=== PATIENT | male | born 1945 | race Caucasian/White ===

== ENCOUNTER 2018-11-27 04:51 | Inpatient (IN) ==
--- NOTE | 2018-10-21 09:03 | PAT Medication Instructions ---
Medication Instructions Date of Service October 21, 2018 Home Medications aspirin [Aspir-81] 81 mg PO DAILY calcium carbonate [Tums] 1 dose PO UD PRN ezetimibe-simvastatin [Vytorin 1 tab PO PM hydrochlorothiazide 25 mg PO QAM levothyroxine 50 mcg PO QAM naproxen sodium [Aleve] 220 mg PO BID PRN ASK your surgeon for instructions naproxen sodium [Aleve] 220 mg PO BID PRN DO NOT take the morning of surgery calcium carbonate [Tums] 1 dose PO UD PRN hydrochlorothiazide 25 mg PO QAM Take morning of surgery With a small sip of water, OTHERWISE NOTHING TO EAT OR DRINK AFTER MIDNIGHT: aspirin [Aspir-81] 81 mg PO DAILY levothyroxine 50 mcg PO QAM Take evening before surgery calcium carbonate [Tums] 1 dose PO UD PRN (if needed) ezetimibe-simvastatin [Vytorin 1 tab PO PM Other Notes If you have any questions please call us at [phone] or [phone] or [phone] or [phone]
--- NOTE | 2018-10-21 11:26 | Anesthesiology Consultation ---
Date of Service October 21, 2018 Assessment & Plan (1) Encounter for pre-operative examination: Chart Review Chart Review: Acceptable Risk for Surgery and Patient seen in Pre Admission Testing Teaching & Discussion Pre-Anesthesia Teaching/Discussion Notes: Instructed NPO after midnight before surgery,except medications with 15 cc of water. Medication instructions provided according to the PAT guidelines. History Surgery Operation Date: 11/20/18 08:30 Proposed Procedures p Right Reverse Total Shoulder Arthroplasty - Ryland Holland, Height/Weight Height: 5 ft 8 in Weight: 78.3 kg Allergies Allergy/AdvReac Type Severity Reaction Status Date / Time niacin Allergy Mild Unknown Verified 10/14/18 09:06 tetanus toxoid, adsorbed Allergy Mild SWELLING/REDNESS Verified 10/21/18 11:33 AT INJECTION SITE Medications Home Medications Medication Instructions Recorded Confirmed Last Taken aspirin [Aspir-81] 81 mg PO DAILY 10/14/18 10/14/18 Unknown calcium carbonate [Tums] 1 dose PO UD PRN 10/14/18 10/14/18 Unknown ezetimibe-simvastatin [Vytorin 1 tab PO PM 10/14/18 10/14/18 10/13/18 10-20] hydrochlorothiazide 25 mg PO QAM 10/14/18 10/14/18 10/14/18 levothyroxine 50 mcg PO QAM 10/14/18 10/14/18 10/14/18 naproxen sodium [Aleve] 220 mg PO BID PRN 10/14/18 10/14/18 Unknown Past Medical History Medical History Acid reflux DIET CONTROLLED Arthritis Degenerative disc disease Enlarged prostate History of kidney stones Hyperlipidemia Hypothyroidism PVCs (premature ventricular contractions) Spinal stenosis Past Family History Family History Brother Family history of cancer Past Surgical History Surgical History History of bowel resection 2/2 BENIGN COLON MASS History of colonoscopy History of cystoscopy History of inguinal hernia repair, bilateral History of repair of left rotator cuff Past Anesthesia History No Hx of Anesthesia Complications and No Family Hx of Anesthesia Complications History of PONV No Motion Sickness Screening History of Motion Sickness: Yes (OCCASIONAL) Social History Smoking Status: Never smoker Do You Dip or Chew Tobacco: No Hx Alcohol Use: Yes Alcohol type: beer alcohol intake frequency: a few times a week Hx Substance Use: No substance use type: does not use Exercise / Class Metabolic Activity II 4-5 Yardwork/Stairs/Walk up thomson Review of Systems Acid reflux controlled. Patient denies chest pain, shortness of breath, cough, wheezing, palpitations. Physical Exam Vital Signs VITALS BP 138/82 P 74 TEMP 97.8 SP02 94%RA RESP 18 PHYSICAL Full neck and c-spine range of motion. Full TMJ range of motion. TMD 2.5 finger breaths Mallampati Score 3 Dentition: partial dentures on lower; full on upper Lungs: clear throughout to auscultation Cardiac: regular rate and rhythm, no murmurs noted Spine: normal Carotid arteries: negative bruit Extremities: no edema Testing Electrocardiogram Date: 10/21/18 NSR at 71bpm. LAD. Chest X-Ray Date: 10/21/18 Findings: + NAD Laboratory Results 10/21/18 12:05 10/21/18 12:05 Blood Type AB Positive 10/21/18 12:05 Antibody Screen NEGATIVE 10/21/18 12:05 PT 10.3 Seconds (9.0-12.0) 10/21/18 12:05 INR 1.0 (0.9-1.1) 10/21/18 12:05 APTT 25.9 Seconds (21.0-31.0) 10/21/18 12:05
[2018-10-21 12:38] LABS: Basophils # (auto) 0.06 K/uL (0-0.2); Basophils % (auto) 0.8 %; Eosinophils # (auto) 0.16 K/uL (0-0.5); Eosinophils % (auto) 2.2 %; Hematocrit (blood only) 47.7 % (42-52); Hemoglobin 16.8 g/dL (14.0-18.0); Immature Granulocytes # (auto) 0.02 K/uL (0.00-0.02); Immature Granulocytes % (auto) 0.3 %; Lymphocytes # (auto) 1.59 K/uL (1.2-3.4); Lymphocytes % (auto) 21.5 %; Mean Corpuscular Hgb Conc 35.2 g/dL (32-36); Mean Corpuscular Volume 84.3 fL (80-100); Mean Platelet Volume 11.2 fL (7.4-10.4); Monocytes % (auto) 8.1 %; Neutrophils # (auto) 4.98 K/uL (1.4-6.5); Neutrophils % (auto) 67.1 %; Platelet Count 206 K/uL (130-400); RDW Coefficient of Variation 12.7 % (11.5-14.5); RDW Standard Deviation 38.3 fL (36.4-46.3); Red Blood Count 5.66 M/uL (4.7-6.1); White Blood Count 7.41 K/uL (4.8-10.8)
[2018-10-21 12:51] LABS: Partial Thromboplastin Time 25.9 Seconds (21.0-31.0); Prothrombin Time 10.3 Seconds (9.0-12.0)
--- NOTE | 2018-10-21 13:15 | XRay Report ---
XR chest Pre-admission PA/Lat HISTORY: Preop. COMPARISON: None. FINDINGS: No pneumothorax. No pleural effusions. The heart is normal in size. The lungs are clear. Th ere are low lung volumes. IMPRESSION: No acute process. Electronically signed by: Jaime Garcia M.D. 10/21/2018 1:13 PM
[2018-10-21 13:37] LABS: BUN Creatinine Ratio 14.3 (10-20); Calcium 9.1 mg/dl (8.5-10.1); Est GFR (African American) 73.8; Est GFR (Non-African American) 63.7; Potassium 3.9 mmol/L (3.5-5.1)
--- NOTE | 2018-11-26 20:46 | History & Physical Report ---
Date of Service November 26, 2018 Assessment & Plan (1) Rotator cuff arthropathy of right shoulder: We will proceed with a right reverse shoulder arthroplasty. Postoperatively he will be placed in an arm sling and kept overnight for postop medical management. He plans to use dryer physical therapy upon discharge. Present on Admission?: Yes History of Present Illness Chief Complaint: Rotator cuff arthropathy of the right shoulder Primary Care Provider: Sung Sebastian is a pleasant 72-year-old male who has been dealing with a several year history of increasing right shoulder pain. MRI, x-rays, and physical examination were all diagnostic for rotator cuff arthropathy of the right shoulder. After failing extensive conservative treatment including multiple injections, he has elected to proceed with a reverse right shoulder arthroplasty. Allergies Allergy/AdvReac Type Severity Reaction Status Date / Time niacin Allergy Mild Unknown Verified 10/14/18 09:06 tetanus toxoid, adsorbed Allergy Mild SWELLING/REDNESS Verified 10/21/18 11:33 AT INJECTION SITE Home Medications Home Medications Medication Instructions Recorded Confirmed Type aspirin [Aspir-81] 81 mg PO DAILY 10/14/18 10/14/18 History calcium carbonate [Tums] 1 dose PO UD PRN 10/14/18 10/14/18 History ezetimibe-simvastatin [Vytorin 1 tab PO PM 10/14/18 10/14/18 History 10-20] hydrochlorothiazide 25 mg PO QAM 10/14/18 10/14/18 History levothyroxine 50 mcg PO QAM 10/14/18 10/14/18 History naproxen sodium [Aleve] 220 mg PO BID PRN 10/14/18 10/14/18 History Past Med/Surg History Medical History Acid reflux DIET CONTROLLED Arthritis Degenerative disc disease Enlarged prostate History of kidney stones Hyperlipidemia Hypothyroidism PVCs (premature ventricular contractions) Spinal stenosis Surgical History History of bowel resection 2/2 BENIGN COLON MASS History of colonoscopy History of cystoscopy History of inguinal hernia repair, bilateral History of repair of left rotator cuff Family History Brother Family history of cancer Social History Preferred Language: Andorran Communication Ability: Effective Aix Architect Required: No Beliefs That Will Affect Care: None Current Living Situation: Spouse Other Information That Helps Us Care for You: No Feels Safe at Home: Yes Smoking Status: Never smoker Hx Alcohol Use: Yes Hx Substance Use: No Review of Systems All systems reviewed & are unremarkable except as noted in HPI & below Physical Exam Constitutional: WD/WN, vitals as above Eyes: PERRL, conjunctivae normal, anicteric sclerae ENMT: external ear and nose normal, oropharynx normal Neck: trachea midline, no thyromegaly Respiratory: normal respiratory effort Cardiovascular: RRR, no murmur, no edema Gastrointestinal (Abdomen): normal bowel sounds, soft, nontender, no he patosplenomegaly Musculoskeletal: Physical examination of the right shoulder reveals decreased range of motion and significant weakness. There is tenderness palpation along the anterior glenohumeral joint line. The right upper extremity is neurovascularly intact. Psychiatric: A+Ox3, euthymic affect Results & Data Diagnostic Findings Radiographs of the right shoulder show some signs of osteoarthritis with blunting of the greater tuberosity and some superior migration of the humeral head on the glenoid.
[~2018-11-27 04:51] MED LIST: ACETAMINOPHEN 500 MG TAB PO SCH; CEFAZOLIN 2000MG 2,000 MG/15 ML SYR IV SCH; FAMOTIDINE 20 MG TAB PO SCH; GABAPENTIN 300 MG PO SCH; LR 15ML/HR IV SCH; LR 60ML/HR IV SCH; ROPIVACAINE 0.5% HCL/PF 150 MG, BUPIVACAINE 0.5% MPF 30 ML, EPINEPHrine 30MG/30ML (OR U... INFIL SCH; TRANEXAMIC ACID 1,000 MG **IV Intra-op IV SCH; TRANEXAMIC ACID 1,000 MG **IV Pre-op IV SCH
[2018-11-27] MEDS ORDERED: TRANEXAMIC ACID 1,000 MG **IV Pre-op IV SCH (06:00)
[2018-11-27] MEDS ORDERED: GABAPENTIN 300 MG PO SCH (06:00)
[2018-11-27] MEDS ORDERED: CEFAZOLIN 2000MG 2,000 MG/15 ML SYR IV SCH (06:00)
[2018-11-27] MEDS ORDERED: ACETAMINOPHEN 500 MG TAB PO SCH (06:00)
[2018-11-27] MEDS ORDERED: LR 15ML/HR IV SCH (06:00)
[2018-11-27] MEDS ORDERED: LR 60ML/HR IV SCH (06:00)
[2018-11-27] MEDS ORDERED: FAMOTIDINE 20 MG TAB PO SCH (06:00)
[2018-11-27] MEDS ORDERED: ROPIVACAINE 0.5% HCL/PF 150 MG, BUPIVACAINE 0.5% MPF 30 ML, EPINEPHrine 30MG/30ML (OR U... INFIL SCH (06:00)
[2018-11-27] MEDS ORDERED: ROCURONIUM BROMIDE 10 MG/ML 5 ML VIAL ONE (06:29)
[2018-11-27] MEDS ORDERED: MIDAZOLAM HCL 1 MG/ML 2ML VIAL ONE (06:29)
[2018-11-27] MEDS ORDERED: PROPOFOL IV EMULSION 10 MG/ML 20 ML VIAL IV ONE (06:29)
[2018-11-27] MEDS ORDERED: ROPIVACAINE 0.5% 5 MG/ML 30 ML VIAL ONE (06:29)
[2018-11-27] MEDS ORDERED: LIDOCAINE HCL 2% 2 ML VIAL/AMP(20MG/ML) INFIL ONE (06:29)
[2018-11-27] MEDS ORDERED: fentaNYL citrate 100 MCG/2 ML VIAL ONE (06:30)
[2018-11-27] MEDS ORDERED: TRANEXAMIC ACID 1,000 MG **IV Intra-op IV SCH (06:30)
[2018-11-27] MEDS ORDERED: ePHEDrine sulfate 50 MG/ML AMP IV PRN (06:31)
[2018-11-27] MEDS ORDERED: ONDANSETRON INJ 2 MG/ML 2 ML VIAL IV PRN ×2 (06:31→10:10)
[2018-11-27] MEDS ORDERED: fentaNYL citrate 100 MCG/2 ML VIAL IV PRN (06:31)
[2018-11-27] MEDS ORDERED: POVIDONE-IODINE OP SOLN 30 ML BTL ONE (06:31)
[2018-11-27] MEDS ORDERED: ATROPINE SULFATE 0.1 MG/ML 10ML SYR IV PRN (06:31)
[2018-11-27] MEDS ORDERED: HYDROmorphone INJ 1 MG/ML SYRINGE IV PRN (06:31)
--- NOTE | 2018-11-27 06:43 | History & Physical Bridge Note ---
Date of Service November 27, 2018 History & Physical Bridge Note I have examined the patient, reviewed the History & Physical and in the interval since the performance of the History & Physical I have noted the following changes of clinical significance: no changes noted
[2018-11-27] MEDS ORDERED: BUPIVACAINE 0.5 % 5 MG/1 ML PF 10ML VIAL ONE (07:11)
[2018-11-27] MEDS ORDERED: PHENYLEPHRINE 100MCG/ML 5ML SYR ONE (07:32)
[2018-11-27] MEDS ORDERED: NEOSTIGMINE METHYLSULFATE 5 MG/5 ML SYR ONE (07:32)
[2018-11-27] MEDS ORDERED: ONDANSETRON INJ 2 MG/ML 2 ML VIAL ONE (07:32)
[2018-11-27] MEDS ORDERED: GLYCOPYRROLATE 0.2 MG/ML VIAL ONE (07:32)
[2018-11-27] MEDS: ORTHO JOINT ANESTHETIC ONE ×2 (08:23→10:18)
--- NOTE | 2018-11-27 08:25 | Operative Report ---
Post Operative Report Pre & Post Diagnosis Operation Date: 11/27/18 07:00 Pre-Op Diagnosis: Chronic Rotator Cuff Tear Right Shoulder Post-Op Diagnosis: Chronic Rotator Cuff Tear Right Shoulder Procedure Operation Date: 11/27/18 07:00 Actual Procedures p Right Reverse Total Shoulder Replacement(Right) - Ryland Holland DO Surgeon Ryland Holland DO Frame Runner Ryland Claudio PAC Estimated Blood Loss 200 Findings Consistent with Post-Op Diagnosis Specimens Right humeral head Complications none Disposition Disposition: Recovery Room Indications Romulo is a pleasant 73-year-old male who is been having a greater than 1 year history of right shoulder pain. X-rays, MRI, and clinical examination were all diagnostic for rotator cuff arthropathy of the right shoulder. After failing conservative treatment, he elected to proceed with a right reverse shoulder arthroplasty. Description of Procedure Implants used: I used a [employer]omet Comprehensive reverse total shoulder arthroplasty system with a size 13 press fit mini humeral stem, a standard humeral tray and a standard humeral bearing, a 25 mm mini baseplate with a 6.5 mm central screw and superior and inferior locking screws, and a size 36 mm eccentric glenosphere. The patient arrived at [facility] for the above procedure. There were seen in the preoperative holding area and the operative extremity was identified and signed. They were given a preoperative antibiotic and an interscalene nerve block. They were taken back to the operating room, laid on table in supine position, and put under general anesthesia. They were then put into the beachchair position. The shoulder was then prepped and draped in sterile fashion. A timeout was done and the patient in the operative extremity was properly identified. A deltopectoral approach was used. Dissection was taken down through the fascia and the deltoid was retracted laterally and the conjoined tendon was retracted medially. The anterior shoulder was exposed. The long head of the biceps tendon was tenodesed to the upper border of the pectoralis major. The subscapularis was then released off the lesser tuberosity with a centimeter of cuff tissue remaining. The inferior capsule was released and the humeral head was dislocated. A canal finding reamer was sent down the center of the humeral canal. Sequential reaming up to a size 13 reamer was done. Off that reamer, a proximal humeral resection guide was placed. The proximal humerus was resected at 135 of inclination and 25 of retroversion. Osteophytes were then removed and the glenoid was exposed. Time was spent doing a complete capsular and labral release. The glenoid guide was then placed in the inferior aspect of the glenoid. A 3.2 mm Steinmann pin was then placed into the glenoid vault at 10 of inclination. The glenoid baseplate was then reamed. The final size 25 mm mini baseplate was then impacted in the place. A 6.5 mm central screw was then placed followed by superior and inferior locking screws. A 36 eccentric glenoid sphere was then impacted into place. Surrounding soft tissues were then injected with 100 cc an orthopedic pain control cocktail. The proximal humerus was then exposed. Sequential broaching of the humerus up to a size 13 broach was done. Off that broach a standard humeral tray was trialed. The shoulder was then reduced, brought through a full range of motion and felt to be stable. The shoulder was then dislocated and the broach was removed. The final size 13 mini press-fit humeral stem was then impacted into place. A standard humeral bearing was then snapped onto a standard humeral tray and the ring-lock mechanism was engaged. The humeral tray was then impacted onto the humeral stem. The shoulder was once again reduced, brought through a full range of motion and felt to be stable. The subscapularis was then tenodesed back to the lesser tuberosity with transosseous FiberWire sutures and side to side sutures with the arm in 45 of external rotation. A dilute betadyne lavage was then done for 3 minutes. The joint was then irrigated with normal saline solution. Hemostasis was obtained. The skin was then closed with 2-0 Vicryl, 3-0V lock suture, and roro. A soft dressing and a regular arm sling was placed. The patient was then extubated and transferred to a hospital bed. They were taken to the postanesthesia care unit in stable condition. They tolerated the procedure well. I attest to the content of the Intraoperative Record and any orders documented therein. Any exceptions are noted below.
--- NOTE | 2018-11-27 09:24 | XRay Report ---
XR shoulder RT min 2V routine CLINICAL HISTORY: Post shoulder surgery COMPARISON: None. DISCUSSION: Anatomic alignment post total right shoulder arthroplasty. Good contact between prostheti c and underlying bone. Expected postoperative soft tissue change. IMPRESSION: Anatomic alignment post total right shoulder arthroplasty. The above report was generated using voice recognition software. It may contain grammatical, syntax or spelling errors. Electronically signed by: Francis Ferguson M.D. 11/27/2018 9:22 AM
--- NOTE | 2018-11-27 09:58 | Anesthesiology Progress Note ---
Date of Service November 27, 2018 Anesthesia Post Procedure Vital Signs Vital Signs: Temp Pulse Pulse Resp BP Pulse Ox 11/27/18 09:30 36.1 C L 62 16 135/82 94 11/27/18 09:20 36.1 C L 62 16 147/81 H 94 11/27/18 09:10 66 18 137/75 99 11/27/18 09:00 66 18 141/75 H 99 11/27/18 08:51 36.7 C 67 28 H 139/78 98 11/27/18 05:53 36.7 C 67 20 169/85 H 94 Notes Mental Status: alert / awake / arousable and participated in evaluation Patient Amnestic to Procedure: Yes Nausea / Vomiting: adequately controlled Pain: adequately controlled Airway Patency, RR, SpO2: stable & adequate BP & HR: stable & adequate Hydration State: stable & adequate Anesthetic Complications: no major complications apparent and Pt Satisfied with anesthetic care
[2018-11-27] MEDS ORDERED: NALOXONE HCL 0.4 MG/1 ML VIAL/CARP IV PRN (10:10)
[2018-11-27] MEDS ORDERED: METOCLOPRAMIDE HCL INJ 5 MG/ML 2 ML VIAL IV PRN (10:10)
[2018-11-27] MEDS ORDERED: HYDROmorphone INJ 0.5 MG/0.5 ML SYR IV PRN (10:10)
[2018-11-27] MEDS ORDERED: BISACODYL 10 MG SUPP PR PRN (10:10)
[2018-11-27] MEDS ORDERED: MAGNESIUM HYDROXIDE SUSP 30 ML UDC PO PRN (10:10)
[2018-11-27] MEDS ORDERED: OXYCODONE HCL IR 5 MG TAB (IMMEDIATE RELEASE) PO PRN (10:10)
[2018-11-27] MEDS ORDERED: CALCIUM CARBONATE 500 MG CHEWABLE TAB PO PRN (10:10)
[2018-11-27] MEDS: SODIUM CHLORIDE 0.9% 1000ML 1,000 ML IV SCH ×2 (10:36→20:51)
[2018-11-27] MEDS: DOCUSATE SODIUM 100 MG CAP PO SCH ×2 (10:36→20:34)
[2018-11-27] MEDS: ASPIRIN 81 MG ECTAB PO SCH (11:41)
[2018-11-27] MEDS: MULTIVITAMIN TAB PO SCH (11:41)
[2018-11-27] MEDS: hydroCHLOROthiazide 25 MG TAB PO SCH (11:41)
[2018-11-27] MEDS: KETOROLAC TROMETHAMINE 15 MG/ML VIAL IV SCH ×3 (11:44→23:55)
[2018-11-27] MEDS: CEFAZOLIN 1000MG 1,000 MG/7.5 ML SYR IV SCH ×2 (14:05→22:20)
[2018-11-27] MEDS: ACETAMINOPHEN 500 MG TAB PO SCH ×2 (14:05→22:20)
[2018-11-27] MEDS ORDERED: SENNA 8.6 MG TAB PO SCH (21:00)
[2018-11-27] MEDS ORDERED: EZETIMIBE/SIMVASTATIN 10/20 TAB PO SCH (21:00)
[2018-11-28] MEDS: ACETAMINOPHEN 500 MG TAB PO SCH (05:15)
[2018-11-28] MEDS: KETOROLAC TROMETHAMINE 15 MG/ML VIAL IV SCH (05:15)
[2018-11-28 06:01] LABS: Basophils # (auto) 0.02 K/uL (0-0.2); Basophils % (auto) 0.2 %; Eosinophils # (auto) 0.02 K/uL (0-0.5); Eosinophils % (auto) 0.2 %; Hematocrit (blood only) 37.7 % (42-52); Hemoglobin 13.4 g/dL (14.0-18.0); Immature Granulocytes # (auto) 0.04 K/uL (0.00-0.02); Immature Granulocytes % (auto) 0.3 %; Lymphocytes # (auto) 1.18 K/uL (1.2-3.4); Lymphocytes % (auto) 9.7 %; Mean Corpuscular Hgb Conc 35.5 g/dL (32-36); Mean Corpuscular Volume 84.2 fL (80-100); Mean Platelet Volume 10.9 fL (7.4-10.4); Neutrophils # (auto) 9.83 K/uL (1.4-6.5); Neutrophils % (auto) 80.6 %; Platelet Count 161 K/uL (130-400); RDW Coefficient of Variation 12.7 % (11.5-14.5); RDW Standard Deviation 38.4 fL (36.4-46.3); Red Blood Count 4.48 M/uL (4.7-6.1); White Blood Count 12.19 K/uL (4.8-10.8)
[2018-11-28] MEDS ORDERED: LEVOTHYROXINE SODIUM 50 MCG TABLET PO SCH (06:30)
[2018-11-28 06:33] LABS: BUN Creatinine Ratio 15.9 (10-20); Calcium 7.8 mg/dl (8.5-10.1); Creatinine Clr Calc Pharmacy 50.9 ml/min; Est GFR (Non-African American) 56.1; Potassium 3.5 mmol/L (3.5-5.1)
[2018-11-28] MEDS: ASPIRIN 81 MG ECTAB PO SCH (08:33)
[2018-11-28] MEDS: MULTIVITAMIN TAB PO SCH (08:33)
[2018-11-28] MEDS: hydroCHLOROthiazide 25 MG TAB PO SCH (08:34)
[2018-11-28] MEDS: DOCUSATE SODIUM 100 MG CAP PO SCH (08:34)
--- NOTE | 2018-11-28 09:12 | Orthopedic Progress Note ---
Date of Service November 28, 2018 Assessment & Plan (1) Rotator cuff arthropathy of right shoulder: Overall he is doing very well. He will be seen by physical therapy today to do range of motion exercises. His pain is well controlled. We will discharge him to home later this morning with outpatient physical therapy. He will follow-up with orthopedics in 2 weeks. Present on Admission?: Yes Subjective Romulo was seen and examined at bedside this morning. Overall he is doing very well. Is not having much pain in the shoulder. He was able to get some sleep last night. He has no complaints. Physical Exam Vital Signs (Past 24 Hours): Last Vital Signs Temp 36.7 C 11/28/18 06:47 Pulse 68 11/28/18 06:47 Resp 18 11/28/18 06:47 BP 124/69 11/28/18 08:32 Pulse Ox 90 11/28/18 06:47 Musculoskeletal: On physical examination of the right shoulder, the dressing is clean and dry. He is wearing a sling as instructed. His radial, median, and ulnar nerves were checked and intact. His axillary nerve is not checked yet. Results & Data Laboratory Results H & H 10/21/18 11/28/18 Range/Units 12:05 05:23 Hgb 16.8 13.4 L (14.0-18.0) g/dL Hct 47.7 37.7 L (42-52) % Coagulation 10/21/18 Range/Units 12:05 INR 1.0 (0.9-1.1) Diagnostic Findings Postoperative x-rays of the right shoulder show the prosthesis to be in anatomic alignment without any evidence of fracture, dislocation, or loosening.
--- NOTE | 2018-11-28 09:14 | Discharge Summary ---
Date of Service November 28, 2018 Admission HPI Per Admitting Provider Romulo is a pleasant 72-year-old male who has been dealing with a several year history of increasing right shoulder pain. MRI, x-rays, and physical examination were all diagnostic for rotator cuff arthropathy of the right shoulder. After failing extensive conservative treatment including multiple injections, he has elected to proceed with a reverse right shoulder arthroplasty. Specialty Data Orthopedic H & H 10/21/18 11/28/18 Range/Units 12:05 05:23 Hgb 16.8 13.4 L (14.0-18.0) g/dL Hct 47.7 37.7 L (42-52) % Coagulation 10/21/18 Range/Units 12:05 INR 1.0 (0.9-1.1) Discharge Data Consultations 11/27/18 10:10 Consult Case Management - Discharge Planning Routine Procedures Performed Operation Date: 11/27/18 07:00 Actual Procedures p Right Reverse Total Shoulder Replacement(Right) - Ryland Holland DO [facility] Course (1) Rotator cuff arthropathy of right shoulder: On November 27, 2018 Romulo arrived at [facility] and underwent a right reverse shoulder arthroplasty without complication. He had a general anesthetic and a right interscalene nerve block. Postoperatively he was placed in the sling and discharged to general orthopedic floors. His hospital course is uneventful. On postop day #1 his H&H was stable and his pain was well controlled. He was seen by physical therapy and able to do range of motion exercises. His pain was controlled on the oral pain medication. He was then discharged home with outpatient physical therapy. He will follow-up with orthopedics in 2 weeks. Discharge Instructions Home Medications Medication Instructions Recorded Confirmed aspirin [Aspir-81] 81 mg PO DAILY 10/14/18 11/27/18 calcium carbonate [Tums] 1 dose PO UD PRN 10/14/18 11/27/18 ezetimibe-simvastatin [Vytorin 1 tab PO PM 10/14/18 11/27/18 10-20] hydrochlorothiazide 25 mg PO QAM 10/14/18 11/27/18 levothyroxine 50 mcg PO QAM 10/14/18 11/27/18 naproxen sodium [Aleve] 220 mg PO BID PRN 10/14/18 11/27/18 Previous Rx's Medication Instructions Recorded oxycodone 5 - 10 mg PO Q4H PRN #40 tab 11/28/18
--- NOTE | 2018-11-28 13:22 | Anesthesiology Progress Note ---
Date of Service November 28, 2018 Anesthesia Post Procedure Vital Signs Vital Signs: Temp Pulse Resp BP Pulse Ox 11/28/18 08:32 124/69 11/28/18 06:47 36.7 C 68 18 121/74 90 11/28/18 03:37 36.8 C 74 16 124/68 90 11/27/18 22:55 36.9 C 82 18 113/63 90 11/27/18 14:55 36.2 C L 64 17 119/76 93 Notes Mental Status: alert / awake / arousable and participated in evaluation Patient Amnestic to Procedure: Yes Nausea / Vomiting: adequately controlled Pain: adequately controlled Airway Patency, RR, SpO2: stable & adequate BP & HR: stable & adequate Hydration State: stable & adequate Anesthetic Complications: no major complications apparent and Pt Satisfied with anesthetic care
== END 2018-11-28 11:11 | disposition home or self-care (01) | DRG 483 ==
LOC: ASU 04:51 → 3E 07:03

== ENCOUNTER 2024-12-10 09:58 | Observation (INO) ==
--- NOTE | 2024-10-29 10:35 | PAT Medication Instructions ---
Medication Instructions Date of Service October 29, 2024 Home Medications Medication Instructions Recorded tramadol 50 mg tablet 50 mg PO Q8H PRN pain #30 tabs 09/28/24 aspirin 81 mg tablet,delayed release (Aspir-) 81 mg PO HS calcium carbonate (Tums) 1 dose PO UD PRN Acid Reflux ezetimibe 10 mg-simvastatin 20 mg tablet (Vytorin) 1 tab PO HS levothyroxine 50 mcg capsule 50 mcg PO QAM pantoprazole 40 mg tablet,delayed release 40 mg PO DAILY PRN reflux metoprolol tartrate 25 mg tablet 12.5 mg PO QAM tramadol 50 mg tablet 50 mg PO Q8H PRN pain alprazolam 0.5 mg tablet 0.5 mg PO DAILY PRN Anxiety amoxicillin 500 mg tablet 2,000 mg PO ONCE PRN dental procedure finasteride 5 mg tablet 5 mg PO QAM sertraline 50 mg tablet 50 mg PO HS tamsulosin 0.4 mg capsule (Flomax) 0.4 mg PO HS Continue as directed amoxicillin 500 mg tablet 2,000 mg PO ONCE PRN dental procedure (if needed) alprazolam 0.5 mg tablet 0.5 mg PO DAILY PRN Anxiety (if needed) pantoprazole 40 mg tablet,delayed release 40 mg PO DAILY PRN reflux (if needed) DO NOT take the morning of surgery calcium carbonate (Tums) 1 dose PO UD PRN Acid Reflux Take morning of surgery With a small sip of water, OTHERWISE NOTHING TO EAT OR DRINK AFTER MIDNIGHT: finasteride 5 mg tablet 5 mg PO QAM metoprolol tartrate 25 mg tablet 12.5 mg PO QAM tramadol 50 mg tablet 50 mg PO Q8H PRN pain (if needed) levothyroxine 50 mcg capsule 50 mcg PO QAM Take evening before surgery aspirin 81 mg tablet,delayed release (Aspir-) 81 mg PO HS (unless surgeon directed otherwise) calcium carbonate (Tums) 1 dose PO UD PRN Acid Reflux (if needed) ezetimibe 10 mg-simvastatin 20 mg tablet (Vytorin) 1 tab PO HS tramadol 50 mg tablet 50 mg PO Q8H PRN pain (if needed) sertraline 50 mg tablet 50 mg PO HS tamsulosin 0.4 mg capsule (Flomax) 0.4 mg PO HS Other Notes If you have any questions please call us at [phone] or [phone] or [phone] or [phone]
--- NOTE | 2024-11-08 08:38 | Anesthesiology Consultation ---
Date of Service November 08, 2024 Assessment & Plan (1) Encounter for pre-operative examination: Plan - will request most recent carotid imaging, echocardiogram/stress echo and office note from Dr. Correa. - Outpatient joint pathway: Per surgeon and patient, plan for outpatient joint program. Case discussed in detail with Dr. Moss who advised patient is not an acceptable candidate for Same Day Joint Program from anesthesia perspective. Patient made aware and verbalized understanding and agreement. Surgeon's office made aware. Chart Review Chart Review: Pending: Refer to Additional Notes / Consult section and Patient seen in Pre Admission Testing Teaching & Discussion Pre-Anesthesia Teaching/Discussion Notes: Instructed NPO after midnight before surgery, except medications with 15 cc of water. Medication instructions provided according to the PAT guidelines. History Surgery Operation Date: 12/10/24 12:00 Proposed Procedures p Left Reverse Total Shoulder Arthroplasty - Ryland Holland, Height/Weight Height: 5 ft 8 in Weight: 77.2 kg Allergies Allergy/AdvReac Type Severity Reaction Status Date / Time niacin Allergy Intermediate whole body Verified 10/29/24 09:02 redness/feeling hot tetanus toxoid, adsorbed Allergy Mild SWELLING/REDNESS Verified 10/29/24 09:02 AT INJECTION SITE Medications Home Medications Medication Instructions Recorded Confirmed Last Taken aspirin 81 mg tablet,delayed 81 mg PO HS 10/14/18 10/29/24 11/30/18 release (Aspir-) calcium carbonate (Tums) 1 dose PO UD PRN Acid Reflux 10/14/18 10/29/24 Unknown ezetimibe 10 mg-simvastatin 20 mg 1 tab PO HS 10/14/18 10/29/24 11/30/18 tablet (Vytorin) levothyroxine 50 mcg capsule 50 mcg PO QAM 10/14/18 10/29/24 12/01/18 pantoprazole 40 mg tablet,delayed 40 mg PO DAILY PRN reflux 06/17/19 10/29/24 Unknown release metoprolol tartrate 25 mg tablet 12.5 mg PO QAM 11/16/20 10/29/24 Unknown tramadol 50 mg tablet 50 mg PO Q8H PRN pain #30 tabs 09/28/24 10/29/24 Unknown alprazolam 0.5 mg tablet 0.5 mg PO DAILY PRN Anxiety 10/29/24 10/29/24 Unknown amoxicillin 500 mg tablet 2,000 mg PO ONCE PRN dental 10/29/24 10/29/24 Unknown procedure finasteride 5 mg tablet 5 mg PO QAM 10/29/24 10/29/24 Unknown sertraline 50 mg tablet 50 mg PO HS 10/29/24 10/29/24 Unknown tamsulosin 0.4 mg capsule (Flomax) 0.4 mg PO HS 10/29/24 10/29/24 Unknown Past Medical History Medical History Anxiety Arthritis Benign prostatic hyperplasia with urinary obstruction Chronic retention of urine Coronary artery disease involving coronary bypass graft of [place] heart (~2018) x 3 Degenerative disc disease GERD (gastroesophageal reflux disease) controlled, stable per pt History of duodenal ulcer (~2018) History of kidney stones (~2004) History of pneumothorax 02/2019--developed after cabg--resolved, no further issues/no oxygen per pt o2 sats 99% History of pulmonary embolism (~2018) post-op CABG x 3 Hyperlipidemia Hypertension controlled, stable per pt Hypothyroidism PVCs (premature ventricular contractions) per pt intermittent--follows with Dr. Correa Rotator cuff arthropathy of right shoulder Spinal stenosis Patient denies h/o stroke, seizures, DM, or blood transfusions. Exercise / Class Metabolic Activity II 4-5 Yardwork/Stairs/Walk up hill (denies chest discomfort or shortness of breath with one flight of stairs) Past Family History Family History Brother Family history of cancer Coronary heart disease Sister Coronary heart disease Mother Coronary heart disease Other No family history of adverse response to anesthesia Denies family history of Kidney disease Past Surgical History Surgical History History of bilateral carpal tunnel release History of bowel resection benign colon mass History of cardiac cath 02/2019 @ [facility] Jazmy[facility] per pt was done due to a failed stress test--no stents had cabg done next day History of colonoscopy History of coronary artery bypass graft x 3 02/2019 @ [facility]--follows with Dr. 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 Patient denies chest pain, shortness of breath, dyspnea on exertion, fever, chills, cough, wheezing, or palpitations. Physical Exam Vital Signs Vitals BP 124/71 P 64 TEMP 97.5 SP02 94% on RA RESP 18 Physical Patient resting comfortably in chair in no acute distress, alert and oriented, responding appropriately throughout visit Full cervical extension range of motion without pain TMD 3.5 finger breadths Mallampati Score 2 Dentition: full upper and partial lower dentures Lungs: normal respiratory effort. Good air movement, clear throughout to auscultation, no adventitious breath sounds Cardiac: regular rate and rhythm, no murmurs noted Carotid arteries: negative bruit bilat Lab Results Anesthesia Preop Results Results Anesthesia Widget: WBC 5.58 K/ul (4.8-10.8) 11/08/24 Hgb 15.0 g/dl (14.0-18.0) 11/08/24 Hct 44.6 % (42.0-52.0) 11/08/24 Plt 158 K/uL (130-400) 11/08/24 Na 139 mmol/L (136-145) 11/08/24 K 4.9 mmol/L (3.5-5.1) 11/08/24 Cl 107 mmol/L (98-107) 11/08/24 CO2 30 mmol/L (21-32) 11/08/24 BUN 21 mg/dl (6-23) 11/08/24 Creat 1.16 mg/dl (0.6-1.4) 11/08/24 Glucose Level 122 mg/dl (70-99(Fasting)) H 11/08/24 PT 10.9 Seconds (9.0-12.0) 11/08/24 PTT 27 Seconds (21-31) 11/08/24 INR 1.0 (0.9-1.1) 11/08/24 Blood Type AB Positive 11/08/24 Antibody Screen NEGATIVE 11/08/24 Testing Electrocardiogram Date: 11/08/24 NSR, rate 60 bpm Nonspecific T wave abnormality Chest X-Ray Date: 11/08/24 Mild elevation of the right hemidiaphragm. IMPRESSION: No acute findings.
--- NOTE | 2024-12-09 10:32 | History & Physical Report ---
Date of Service December 09, 2024 Assessment & Plan (1) Rotator cuff arthropathy of left shoulder: We will proceed with a left reverse total shoulder arthroplasty. Postoperatively he will be started on Eliquis. He will be placed in a sling and kept overnight in the hospital for postop medical management. He plans to go to [facility] outpatient physical therapy after discharge. History of Present Illness Chief Complaint: Cuff tear arthropathy of the left shoulder. Primary Care Provider: Sung Cedeno MD Romulo is a pleasant 78-year-old male who I did a right reverse shoulder arthroplasty on in 2019. He has done very well with that. He has a history of a left shoulder arthroscopy including 2 rotator cuff repairs about [address] Gee. Unfortunately, his left shoulder is continuing to bother him. It has been getting worse. He is having trouble doing activities away from his body or up overhead. X-rays and clinical exam have been diagnostic for advanced arthritis of the left shoulder. After failed conservative treatment, he has elected proceed with a left reverse shoulder replacement. Allergies Allergy/AdvReac Type Severity Reaction Status Date / Time niacin Allergy Intermediate whole body Verified 10/29/24 09:02 redness/feeling hot tetanus toxoid, adsorbed Allergy Mild SWELLING/REDNESS Verified 10/29/24 09:02 AT INJECTION SITE Home Medications Medication Instructions Recorded Confirmed Type aspirin 81 mg tablet,delayed 81 mg PO HS 10/14/18 10/29/24 History release (Aspir-) calcium carbonate (Tums) 1 dose PO UD PRN Acid Reflux 10/14/18 10/29/24 History ezetimibe 10 mg-simvastatin 20 mg 1 tab PO HS 10/14/18 10/29/24 History tablet (Vytorin) levothyroxine 50 mcg capsule 50 mcg PO QAM 10/14/18 10/29/24 History pantoprazole 40 mg tablet,delayed 40 mg PO DAILY PRN reflux 06/17/19 10/29/24 History release metoprolol tartrate 25 mg tablet 12.5 mg PO QAM 11/16/20 10/29/24 History tramadol 50 mg tablet 50 mg PO Q8H PRN pain #30 tabs 09/28/24 10/29/24 Rx alprazolam 0.5 mg tablet 0.5 mg PO DAILY PRN Anxiety 10/29/24 10/29/24 History amoxicillin 500 mg tablet 2,000 mg PO ONCE PRN dental 10/29/24 10/29/24 History procedure finasteride 5 mg tablet 5 mg PO QAM 10/29/24 10/29/24 History sertraline 50 mg tablet 50 mg PO HS 10/29/24 10/29/24 History tamsulosin 0.4 mg capsule (Flomax) 0.4 mg PO HS 10/29/24 10/29/24 History Past Med/Surg History Problem List Rotator cuff arthropathy of left shoulder Carpal tunnel syndrome on both sides Medical History History of pulmonary embolism (~2018) post-op CABG x 3 Hypertension controlled, stable per pt Anxiety History of duodenal ulcer (~2018) History of pneumothorax 02/2019--developed after cabg--resolved, no further issues/no oxygen per pt o2 sats 99% Coronary artery disease involving coronary bypass graft of [place] heart (~2018) x 3 GERD (gastroesophageal reflux disease) controlled, stable per pt Benign prostatic hyperplasia with urinary obstruction Chronic retention of urine Rotator cuff arthropathy of right shoulder PVCs (premature ventricular contractions) per pt intermittent--follows with Dr. Correa Hypothyroidism History of kidney stones (~2004) Spinal stenosis Degenerative disc disease Arthritis Hyperlipidemia Surgical History History of esophagogastroduodenoscopy (EGD) History of coronary artery bypass graft x 3 02/2019 @ [facility] [place]--follows with Dr. 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) R reverse shoulder athroplasty @ [facility] Pilonidal cyst History of colonoscopy History of bowel resection benign colon mass History of inguinal hernia repair, bilateral History of cystoscopy History of repair of left rotator cuff Family History Brother Family history of cancer Coronary heart disease Sister Coronary heart disease Mother Coronary heart disease Other No family history of adverse response to anesthesia Denies family history of Kidney disease Social History Smoking Status: Never smoker Second Hand Exposure: No; Do You Dip or Chew Tobacco: No; Tobacco Cessation Education Requested by Patient: No Hx Alcohol Use: Yes Alcohol type: beer Hx Substance Use: No Preferred Language: Uzbek Communication Ability: Effective Visual Impairment: No Limitations Automatic Drill Operator Required: No Beliefs That Will Affect Care: None marital status: Current Living Situation: Spouse Other Information That Helps Us Care for You: No Feels Safe at Home: Yes Safety Concerns: Feels Safe At This Time Assistive Devices: Denture - Upper, Denture - Lower, Glasses and Hearing Aid - Bilateral Assistive Devices Comment: full upper/partial lower Review of Systems All systems reviewed & are unremarkable except as noted in HPI & below. Physical Exam On physical exam of the left shoulder, he has slightly decreased range of motion. He has 4 out of 5 motor strength throughout. Pain over the glenohumeral joint line.. Constitutional WD/WN, vitals as above Eyes PERRL, conjunctivae normal, anicteric sclerae ENMT external ear and nose normal, oropharynx normal Neck trachea midline, no thyromegaly Respiratory normal respiratory effort Cardiovascular RRR, no murmur, no edema Gastrointestinal (Abdomen) normal bowel sounds, soft, nontender, no hepatosplenomegaly Psychiatric A+Ox3, euthymic affect Results & Data Results & Data Laboratory Results . Diagnostic Findings X-rays of the left shoulder show slight superior migration of the humeral head in the glenoid. There is mild glenohumeral arthritis.. PG Care Time/CCT Total # of Minutes Spent Total Time Spent with Patient: Total time spent is greater than 50% in coordination of care (as documented) at patient's floor/unit and/or counseling patient: Coding Level of Care Code None Diagnoses Rotator cuff arthropathy of left shoulder M12.812
[~2024-12-10 09:58] MED LIST changes: -ACETAMINOPHEN 500 MG TAB PO SCH; +BUPIVACAINE 0.5 % 5 MG/1 ML PF 10ML VIAL ONE; -CEFAZOLIN 2000MG 2,000 MG/15 ML SYR IV SCH; -FAMOTIDINE 20 MG TAB PO SCH; -GABAPENTIN 300 MG PO SCH; -LR 15ML/HR IV SCH; -LR 60ML/HR IV SCH; -ROPIVACAINE 0.5% HCL/PF 150 MG, BUPIVACAINE 0.5% MPF 30 ML, EPINEPHrine 30MG/30ML (OR U... INFIL SCH; -TRANEXAMIC ACID 1,000 MG **IV Intra-op IV SCH; -TRANEXAMIC ACID 1,000 MG **IV Pre-op IV SCH
[2024-12-10] MEDS: GABAPENTIN 300 MG CAP PO SCH (10:26)
[2024-12-10] MEDS: LR 60ML/HR IV SCH (10:26)
[2024-12-10] MEDS: FAMOTIDINE 20 MG TAB PO SCH (10:26)
[2024-12-10] MEDS: LR 15ML/HR IV SCH (10:40)
[2024-12-10] MEDS: dexAMETHasone**PF** 10 MG/ML VIAL IV SCH (10:45)
[2024-12-10] MEDS: ACETAMINOPHEN 500 MG TAB PO SCH ×2 (10:46→17:00)
--- NOTE | 2024-12-10 11:13 | History & Physical Bridge Note ---
Date of Service December 10, 2024 History & Physical Bridge Note I have examined the patient, reviewed the History & Physical and in the interval since the performance of the History & Physical I have noted the following changes of clinical significance: no changes noted
[2024-12-10] MEDS ORDERED: MIDAZOLAM HCL 1 MG/ML 2ML VIAL ONE (12:11)
[2024-12-10] MEDS ORDERED: fentaNYL citrate PF 100 MCG/2 ML VIAL ONE (12:11)
[2024-12-10] MEDS: TRANEXAMIC ACID 1,000 MG **IV Pre-op IV SCH (12:14)
[2024-12-10] MEDS: ceFAZolin 2000MG 2,000 MG/15 ML SYR IV SCH (12:24)
[2024-12-10] MEDS ORDERED: PROPOFOL IV EMULSION 10 MG/ML 20 ML VIAL IV ONE (12:28)
[2024-12-10] MEDS: ROPIV 0.5% 246mg, Ketorolac 30mg, EPINEPHrine 0.5mg in NSS INFIL SCH (13:07)
[2024-12-10] MEDS: ORTHO JOINT ANESTHETIC ONE (13:08)
[2024-12-10] MEDS: TRANEXAMIC ACID 1,000 MG **IV Intra-op IV SCH (13:30)
[2024-12-10] MEDS ORDERED: ONDANSETRON INJ 2 MG/ML 2 ML VIAL ONE (13:33)
[2024-12-10] MEDS ORDERED: PROMETHAZINE HCL 6.25 MG in SODIUM CHLORIDE 0.9% 50 ML IV PRN (14:00)
[2024-12-10] MEDS ORDERED: ATROPINE SULFATE 0.1 MG/ML 10ML SYR IV PRN (14:00)
[2024-12-10] MEDS ORDERED: ePHEDrine sulfate 50 MG/ML AMP IV PRN (14:00)
[2024-12-10] MEDS ORDERED: ONDANSETRON INJ 2 MG/ML 2 ML VIAL IV PRN ×2 (14:00→16:29)
--- NOTE | 2024-12-10 14:06 | Operative Report ---
PG Post Operative Report Pre & Post Diagnosis Operation Date: 12/10/24 12:00 Pre-Op Diagnosis: Rotator cuff arthropathy of left shoulder with tendinopathy long head of the biceps tendon Post-Op Diagnosis: Rotator cuff arthropathy of left shoulder with tendinopathy long head of the biceps tendon I identified the patient and participated in the time-out.: Yes Procedure Operation Date: 12/10/24 12:00 Actual Procedures p Left Reverse Total Shoulder Arthroplasty(Left) with open biceps tenodesis as a distinct and separate procedure (modifier 59)- Ryland Holland DO Surgeon Ryland Holland DO Fractionation Supervisor Dandy Chisholm PA-C Estimated Blood Loss 150 Findings Consistent with Post-Op Diagnosis Specimens Left humeral head Description of Procedure A CPT code modifier 59: The long head of the biceps tendon was enlarged and inflamed consistent with tendinopathy. A tenodesis was opted. This was a separate and distinct portion of the procedure. For these reasons, a CPT code modifier 59 will be added to this case. Implants used: I used a [employer] Comprehensive reverse total shoulder arthroplasty system with a size 12 press fit micro humeral stem, a +6 offset humeral tray and a standard humeral bearing, a 25 mm small augment baseplate with a 6.5 mm central screw and superior and inferior locking screws, and a size 36 mm eccentric glenosphere. Romulo arrived at [facility] for the above procedure. He was seen in the preoperative holding area and the operative extremity was identified and signed. He was given a preoperative antibiotic, TXA, and an interscalene nerve block. He was taken back to the operating room, laid on table in supine position, and put under general anesthesia. He was then put into the beachchair position. The shoulder was then prepped and draped in sterile fashion. A timeout was done and the patient and the operative extremity was properly identified. A deltopectoral approach was used. Dissection was taken down through the fascia and the deltoid was retracted laterally and the conjoined tendon was retracted medially. The anterior shoulder was exposed. The biceps groove was opened up and the biceps tendon was examined extensively. The biceps tendon demonstrated enlargement and inflammatory changes consistent with longstanding inflammation in the context of osteoarthritis and cuff arthropathy. The long head of the biceps tendon was then tenodesed to the upper border of the pectoralis major. This was a separate and distinct portion of the procedure. The subscapularis was then directly released off the lesser tuberosity with a peel technique. The inferior capsule was released and the humeral head was dislocated. A canal finding reamer was sent down the center of the humeral canal. Sequential reaming up to a size 12 reamer was done. Off that reamer, a proximal humeral resection guide was placed. The proximal humerus was resected at 135 of inclination and 25 of retroversion. Osteophytes were then removed and the glenoid was exposed. Time was spent doing a complete capsular and labral release. The glenoid guide was then placed in the inferior aspect of the glenoid. A 3.2 mm Steinmann pin was then placed into the glenoid vault at 10 of inclination. The glenoid baseplate was then reamed. The final size 25 mm small augment baseplate was then impacted in the place. A 6.5 mm central screw was then placed followed by superior and inferior locking screws. A 36 mm eccentric glenosphere was then impacted into place. Surrounding soft tissues were then injected with 100 cc an orthopedic pain control cocktail. The proximal humerus was then exposed. Sequential broaching of the humerus up to a size 12 broach was done. Off that broach a +6 offset humeral tray was trialed. The shoulder was then reduced, brought through a full range of motion, and felt to be stable. The shoulder was then dislocated and the broach was removed. The final size 12 micro press-fit humeral stem was then impacted into place. A standard humeral bearing was then snapped onto a +6 offset humeral tray. The humeral tray was then impacted onto the humeral stem. The shoulder was once again reduced, brought through a full range of motion, and felt to be stable. The subscapularis was poor quality and unable to be repaired. A dilute betadyne lavage was then done for 3 minutes. The joint was then irrigated with normal saline solution. Hemostasis was obtained. The interval was closed with 2-0 Vicryl suture. The skin was then closed with 2-0 Vicryl and roro. A Silverlon dressing was placed and the arm was rested in a regular arm sling. He was then extubated and transferred to a hospital bed. He taken to the postanesthesia care unit in stable condition. He tolerated the procedure well. Dandy Chisholm PA-C, was present for the entire procedure. He was critical for patient positioning, prepping, draping, retraction exposure, wound closure and application of sterile dressing. I attest to the content of the Intraoperative Record and any orders documented therein. Any exceptions are noted below.
[2024-12-10] MEDS: fentaNYL citrate PF 100 MCG/2 ML VIAL IV PRN (14:10)
--- NOTE | 2024-12-10 14:17 | XRay Report ---
XR shoulder LT min 2V routine HISTORY: 79 years-old Male Post shoulder surgery left shoulder arthroplasty COMPARISON: 09/28/2024 TECHNIQUE: 3 views of the left shoulder FINDINGS: Reverse total arthroplasty demonstrates satisfactory alignment without acute fracture. Overlying skin roro and expected postoperative soft tissue swelling and deep tissue air. Median sternotomy wires are present. IMPRESSION: Satisfactory alignment of the total joint arthroplasty ACT 112: Negative or not required by law. The above report was generated using voice recognition software. It may contain grammatical, syntax o r spelling errors. Electronically signed by: Duke Collins M.D. 12/10/2024 2:15 PM
--- NOTE | 2024-12-10 15:04 | Anesthesiology Progress Note ---
Date of Service December 10, 2024 Anesthesia Post Procedure Vital Signs Vital Signs: Temp Pulse Pulse Resp BP Pulse Ox O2 Del Method 12/10/24 15:00 36.4 C L 60 18 127/63 93 Nasal Cannula 12/10/24 14:50 68 20 112/56 L 94 Nasal Cannula 12/10/24 14:40 64 18 131/66 95 Nasal Cannula 12/10/24 14:30 60 14 130/68 95 Nasal Cannula 12/10/24 14:20 66 18 135/67 96 Nasal Cannula 12/10/24 14:10 67 16 140/68 94 Oxymask 12/10/24 14:00 66 20 143/70 H 96 Oxymask 12/10/24 13:48 36.3 C L 70 16 152/72 H 96 Oxymask 12/10/24 10:19 36.4 C L 58 L 20 175/80 H 98 Room Air O2 Flow Rate 12/10/24 15:00 2 12/10/24 14:50 2 12/10/24 14:40 2 12/10/24 14:30 2 12/10/24 14:20 2 12/10/24 14:10 3 12/10/24 14:00 3 12/10/24 13:48 6 12/10/24 10:19 Pain Intensity Left Shoulder: Pain Intensity: 4 Left Axilla: Pain Intensity: 4 Transfer of Care Handoff Completed per policy Notes Mental Status: alert / awake / arousable and participated in evaluation Patient Amnestic to Procedure: Yes Nausea / Vomiting: adequately controlled Pain: adequately controlled Airway Patency, RR, SpO2: stable & adequate BP & HR: stable & adequate Hydration State: stable & adequate Anesthetic Complications: no major complications apparent and Pt Satisfied with anesthetic care
[2024-12-10] MEDS: BUPIVACAINE LIPOSOME 1.3% 133 MG/10 ML VIAL ONE (16:27)
[2024-12-10] MEDS ORDERED: PANTOprazole 40 MG TAB PO PRN (16:29)
[2024-12-10] MEDS ORDERED: MAGNESIUM HYDROXIDE SUSP 30 ML UDC PO PRN (16:29)
[2024-12-10] MEDS ORDERED: NALOXONE HCL 0.4 MG/1 ML VIAL/CARP IV PRN (16:29)
[2024-12-10] MEDS ORDERED: bisacodyL 10 MG SUPP PR PRN (16:29)
[2024-12-10] MEDS ORDERED: METOCLOPRAMIDE HCL INJ 5 MG/ML 2 ML VIAL IV PRN (16:29)
[2024-12-10] MEDS ORDERED: oxyCODONE HCL IR 5 MG TAB (IMMEDIATE RELEASE) PO PRN (16:29)
[2024-12-10] MEDS ORDERED: HYDROmorphone INJ 0.5 MG/0.5 ML SYR IV PRN (16:29)
[2024-12-10] MEDS: KETOROLAC TROMETHAMINE 15 MG/ML VIAL IV SCH (17:00)
[2024-12-10] MEDS: SENNA 8.6 MG TAB PO SCH (20:27)
[2024-12-10] MEDS: TAMSULOSIN HCL 0.4 MG CAP PO SCH (20:28)
[2024-12-10] MEDS: DOCUSATE SODIUM 100 MG CAP PO SCH (20:28)
[2024-12-10] MEDS: EZETIMIBE 10 MG TAB PO SCH (20:28)
[2024-12-10] MEDS: ceFAZolin 1000MG 1,000 MG/7.5 ML SYR IV SCH (20:28)
[2024-12-10] MEDS: SERTRALINE HCL 50 MG TABLET PO SCH (20:28)
[2024-12-10] MEDS: SIMVASTATIN 20 MG TAB PO SCH (20:28)
[2024-12-10] MEDS ORDERED: EZETIMIBE PO SCH (21:00)
[2024-12-10] MEDS ORDERED: SIMVASTATIN PO SCH (21:00)
[2024-12-10 23:02] VITALS: RESP 16
[2024-12-11] MEDS: LEVOTHYROXINE SODIUM 50 MCG TABLET PO SCH (05:43)
--- NOTE | 2024-12-11 07:10 | Orthopedic Progress Note ---
Date of Service December 11, 2024 Assessment & Plan (1) Status post reverse total replacement of left shoulder: Overall he is doing fairly well. He is not having much pain in the left shoulder. He will be seen by physical therapy today for ambulation and range of motion exercises. He can be discharged home later today. He will follow-up with orthopedics in 2 weeks. Parul Sebastian was seen and examined at bedside this morning. Overall he is doing very well. He is not having much pain in the left shoulder. He has been up and ambulating to the bathroom. He has no complaints.. Review of Systems All systems reviewed & are unremarkable except as noted in HPI & below. Physical Exam On physical exam of the left shoulder, the dressing is clean and dry. He is wearing his sling as instructed. The nerve block is still in effect.. Results & Data Results & Data Laboratory Results . Diagnostic Findings Postoperative x-rays of the left shoulder show the prosthesis to be in anatomic alignment without any evidence of fracture complication, or loosening.. PG Care Time/CCT Total # of Minutes Spent Total Time Spent with Patient: Total time spent is greater than 50% in coordination of care (as documented) at patient's floor/unit and/or counseling patient: Coding Level of Care Code 59689 Post Operative Follow-Up Diagnoses Status post reverse total replacement of left shoulder Z96.612
--- NOTE | 2024-12-11 07:11 | Discharge Summary ---
Date of Service December 11, 2024 Admission HPI (Per Admitting) Romulo is a pleasant 78-year-old male who I did a right reverse shoulder arthroplasty on in 2019. He has done very well with that. He has a history of a left shoulder arthroscopy including 2 rotator cuff repairs about [address] Gee. Unfortunately, his left shoulder is continuing to bother him. It has been getting worse. He is having trouble doing activities away from his body or up overhead. X-rays and clinical exam have been diagnostic for advanced arthritis of the left shoulder. After failed conservative treatment, he has elected proceed with a left reverse shoulder replacement. Admission Exam (Per Admitting) On physical exam of the left shoulder, he has slightly decreased range of motion. He has 4 out of 5 motor strength throughout. Pain over the glenohumeral joint line.. Principal Diagnosis Same as "Discharge Diagnosis" noted below under Discharge Instructions. Discharge Exam On physical exam of the left shoulder, the dressing is clean and dry. He is wearing his sling as instructed. The nerve block is still in effect.. Discharge Data Procedures Performed Operation Date: 12/10/24 12:00 Actual Procedures p Left Reverse Total Shoulder Arthroplasty(Left) - Ryland Holland DO Ordered Studies 12/10/24 05:00 US - OR guided needle placemen Routine Hospital Course (1) Status post reverse total replacement of left shoulder: On December 10, 2024 Romulo arrived at [facility] and underwent a left reverse shoulder replacement without complication. He had a general anesthetic and a left interscalene nerve block. Postoperatively, he was started on Eliquis for DVT prophylaxis due to prior pulmonary embolus. He was then transferred to the general orthopedic floors. His hospital course was uneventful. On postop day #1, his vital signs were stable and his pain is well-controlled. He was able to participate well with physical therapy doing ambulation and range of motion exercises. He was then discharged to home. He will follow with orthopedics in 2 weeks. PG Care Time/CCT Total # of Minutes Spent Total Time Spent with Patient: Total time spent is greater than 50% in coordination of care (as documented) at patient's floor/unit and/or counseling patient: Discharge Plan Discharge Items Patient Disposition: Home - Self-Care Reason For Visit: Left Shoulder Arthritis Discharge Diagnosis: Left reverse shoulder replacement Activity: Per Instructions section Non-emergency contact: Surgeon Call non-emergency contact if: your wound has increased redness and your wound has increased drainage Follow-up/Referrals: Sung Cedeno MD [Primary Care Provider] - Diet: Regular Addtl Attending Provider Instructions: Activity and Therapy Recommendations: * If you are using [facility] then therapy will be provided at your home until they feel you have accomplished all of your goals. * If you are using [facility] then Physical Therapy will be provided until they feel you are ready to start Outpatient Physical Therapy. * If you are not using home therapy then Outpatient Physical Therapy should start about 3-5 days from your day of surgery. Therapy will last about 8-12 weeks * Wear your sling for 3 weeks, unless otherwise instructed. You may remove your sling to shower and to dress, but otherwise, you should be in your sling at all times, including while sleeping * The shoulder replacement is very stable and you can use your hand while in the sling * You were shown a series of exercises in the hospital. Do these exercises daily including the exercises you were shown in physical therapy. Medications: * Narcotic You will likely be sent home from the hospital with a prescription for the narcotic pain medication that worked best throughout your stay. * Cefadroxil -take the antibiotic twice a day for 10 days to help prevent infection. * Take Eliquis 2.5 mg twice a day for 2 weeks to help prevent blood clots. * Other medications may be prescribed for specific circumstances. If you have any questions, please call the office at . * Resume previous home medications unless otherwise instructed Dressing Care: Leave the Silverlon dressing in place for 7 days. After 7 days you may remove the dressing. If the incision is not draining then you may leave the roro open to air. If there is a little bit of drainage or if the roro are getting stuck on your clothing then cover the incision with a dry dressing. The roro will be removed at your 2 week follow-up appointment. Showering: You may shower with the Silverlon dressing in place. Do not let the shower spray hit the dressing directly. Pat the Silverlon dressing dry. If the dressing becomes wet underneath, then simply remove the dressing. Keep the incision dry until you are 7 days out from the day of surgery. After 7 days you may remove the Silverlon dressing and shower with the roro exposed. Let soapy water run over the roro and pat them dry. Do not scrub or soak the incision. Diet: You may resume your previous diet. Things To Watch For: * Drainage from the incision site that occurs more than one week after your surgery. * Increased redness at the incision site. * Fever above 102 degrees Fahrenheit. * Unusual chest pain or shortness of breath. * Call [facility] at with any of the above problems Follow-Up Visit: Follow-up with Dr. Holland's office 2-3 weeks after your day of surgery. We will remove your roro and answer any questions. If you have any additional questions or concerns, Dr Holland is usually in the office at the same time and will be available An appointment was probably scheduled when you signed-up for surgery in the office. If you have any questions call More detailed instructions as well as Frequently Asked Questions were provided in a folder by our office when you signed-up for surgery. Please review these instructions when you get home. If you have any further questions or concerns, please feel free to call the office at [phone] Pending Studies at Discharge: No Stand-Alone Forms: My [facility] Medications and DC Order Prescriptions: New oxycodone 5 mg tablet 5 mg PO Q6H PRN (Reason: pain) Qty: 30 0RF cefadroxil 500 mg capsule 500 mg PO BID 10 Days Qty: 20 0RF Eliquis 2.5 mg tablet 2.5 mg PO BID Qty: 28 0RF Continued pantoprazole 40 mg tablet,delayed release (DR/EC) 40 mg PO DAILY PRN (Reason: reflux) metoprolol tartrate 25 mg tablet 12.5 mg PO QAM tramadol 50 mg tablet 50 mg PO Q8H PRN (Reason: pain) Qty: 30 0RF aspirin [Aspir-81] 81 mg Tablet,Delayed Release (Dr/Ec) 81 mg PO HS ezetimibe-simvastatin [Vytorin 10-20] 10-20 mg Tablet 1 tab PO HS levothyroxine 50 mcg Capsule 50 mcg PO QAM calcium carbonate [Tums] 200 mg calcium (500 mg) Tablet,Chewable 1 dose PO UD PRN (Reason: Acid Reflux) amoxicillin 500 mg tablet 2,000 mg PO ONCE PRN (Reason: dental procedure) Rx Instructions: 4 tabs 1 hour prior to procedure tamsulosin [Flomax] 0.4 mg capsule 0.4 mg PO HS finasteride 5 mg tablet 5 mg PO QAM alprazolam 0.5 mg Tablet 0.5 mg PO DAILY PRN (Reason: Anxiety) sertraline 50 mg Tablet 50 mg PO HS Discharge Orders: Discharge Order (Routine); Ordered 12/11/24 Ordered By: Ryland Holland Admission Data Admit Date/Time: 12/10/24 13:52 Attending Provider: Ryland Holland Admit Provider: Ryland Holland Primary Care Provider: Sung Cedeno
[2024-12-11 07:57] VITALS: BP 143/78; PULSE 71; TEMP 97.7; O2SAT 92
[2024-12-11] MEDS: FINASTERIDE 5 MG TAB PO SCH (08:37)
[2024-12-11] MEDS: dexAMETHasone 4 MG TAB PO SCH (08:37)
[2024-12-11] MEDS: METOPROLOL TARTRATE 25 MG TAB PO SCH (08:37)
[2024-12-11] MEDS: MULTIVITAMIN TAB PO SCH (08:37)
[2024-12-11] MEDS: APIXABAN 2.5 MG TAB PO SCH (08:38)
== END 2024-12-11 11:32 | disposition home or self-care (01) ==
LOC: ASU 09:58 → PACUINP 09:58 → 3W 16:29